=== PATIENT | male | born 1985 | race Caucasian/White ===

== ENCOUNTER 2018-03-18 21:03 | Emergency (ER) | END 2018-03-19 01:15 | disposition home or self-care (01) ==

== ENCOUNTER 2019-04-05 19:36 | Observation (INO) | payer BC, MEDICAID ==
[~2019-04-05] VITALS: Ht 180.3 cm; Wt 116.8 kg
[~2019-04-05 19:36] MED LIST: IBUP800T48 PO
[2019-04-06] MEDS ORDERED: ACETAMINOPHEN 325 MG TAB PO PRN ×2 (01:00→02:00)
[2019-04-06] MEDS ORDERED: ONDANSETRON 4 MG INJ IV PRN ×2 (01:00→02:00)
--- NOTE | 2019-04-06 01:41 | HP ---
Date/Time of Note Date/Time of Note DATE: 04/06/19 TIME: 01:35 Assessment/Plan VTE Prophylaxis SCD applied (from Ns): Yes Pharmacological prophylaxis: NA/contraindicated Pharm contraindication: low risk/ambulating Assessment/Plan Hospital Course This is a 33-year-old male being admitted to the telemetry floor for observation for: #1 chest pain: Rule out ACS versus GI etiology: We will trend cardiac enzymes x3, the first that was negative. Will check an echocardiogram. PRN morphine/nitro for pain. Will check hemoglobin A1c, lipid panel, TSH. Does have a strong family hx of heart disease and was a smoker, consider cardio eval in am. #2 GERD: Patient does have a history of reflux. He states though that his pain at the current times does not feel like reflux. Nonetheless we will check H. pylori stool antigen. We will put patient on PRN Mylanta. On discharge we can likely start him on a PPI. I have discussed diet changes in regards to GERD. #3 obesity: We will check hemoglobin A 1C, lipid panel, TSH encourage diet lifestyle modification #4 DVT GI prophylaxis: SCDs, no GI prophylaxis at this time Further treatment strategy will be implemented as per the clinical course. Result Diagram: 04/05/19 2218 04/05/19 2218 Results 24hrs Laboratory Tests Test 04/05/19 22:18 White Blood Count 8.4 Red Blood Count 5.75 Hemoglobin 13.3 L Hematocrit 42.4 Mean Corpuscular Volume 73.7 L Mean Corpuscular Hemoglobin 23.1 L Mean Corpuscular Hemoglobin Concent 31.4 L Red Cell Distribution Width 14.9 H Platelet Count 216 Mean Platelet Volume 10.0 Immature Granulocytes % 0.100 Neutrophils % 64.7 Lymphocytes % 27.5 Monocytes % 5.4 Eosinophils % 1.8 Basophils % 0.5 Nucleated Red Blood Cells % 0.0 Immature Granulocytes # 0.010 Neutrophils # 5.4 Lymphocytes # 2.3 Monocytes # 0.5 Eosinophils # 0.2 Basophils # 0.0 Nucleated Red Blood Cells # 0.0 Urine Color YELLOW Urine Clarity CLEAR Urine pH 6.0 Urine Specific [place] 1.023 Urine Ketones NEGATIVE Urine Nitrite NEGATIVE Urine Bilirubin NEGATIVE Urine Urobilinogen NEGATIVE Urine Leukocyte Esterase NEGATIVE Urine Hemoglobin NEGATIVE Urine Glucose NEGATIVE Urine Total Protein NEGATIVE Sodium Level 144 Potassium Level 4.0 Chloride Level 102 Carbon Dioxide Level 31 Anion Gap 11 Blood Urea Nitrogen 14 Creatinine 1.05 Est Glomerular Filtrat Rate mL/min > 60 Glucose Level 106 Calcium Level 9.4 Total Bilirubin 0.3 Direct Bilirubin 0.00 Indirect Bilirubin 0.3 Aspartate Amino Transf (AST/SGOT) 23 Alanine Aminotransferase (ALT/SGPT) 30 Alkaline Phosphatase 73 Troponin I < 0.012 Total Protein 8.6 H Albumin 4.3 Globulin 4.30 H Albumin/Globulin Ratio 1.00 Lipase 145 HPI/ROS Admit Date/Time Admit Date/Time Hx of Present Illness Chief complaint: Chest pain This is a 33-year-old male with no significant past medical history who presented to the emergency department with complaints of substernal chest pain x1 day. Patient reports that he started experiencing chest pain yesterday. He reports that it was substernal. He also felt some dizziness and he had some numbness of his left arm. He denies any nausea vomiting or diarrhea. He does report that he has a history of heartburn however he states that this felt different than his normal heartburn. He does have a family history of heart disease. Denies any shortness of breath. Allergies: Hazelnuts Medication: None ROS Const: As per HPI Eyes : No pain discharge or redness or change in visual acuity ENT: No pain, sore throat, congestion, congestion, dysphagia or discharge Respiratory: No shortness of breath, cough, sputum, wheezing, or pleuritic pain Cardiovascular: As per HPI GI : no change in appetite, abdominal pain, nausea, vomiting, diarrhea, constipation, or change in the color his stool Genitourinary: No dysuria, hematuria, flank pain , discharge or CVA tenderness Musculoskeletal: No joint pain, back pain, neck pain, restricted range of motion in neck or joints Skin: No rash, bruising or hives Neuro: No headache, dizziness, syncope, seizure, focal weakness Endocrine: No polyuria, polydipsia, temperature intolerance Psych: No hallucination, depression, anxiety or suicidal ideation PMH/Family/Social Past Medical History GERD Medications Current Medications Ondansetron HCl (Zofran Inj) 4 mg ER BRIDGE PRN IV NAUSEA/VOMITING; Start 04/06/19 at 01:00; Stop 04/07/19 at 00:59 Acetaminophen (Tylenol Tab) 650 mg ER BRIDGE PRN PO .MILD PAIN 1-3 OR TEMP; Start 04/06/19 at 01:00; Stop 04/07/19 at 00:59 Al Hydrox/Mg Hydrox/Simethicone (Mag-Al Plus) 30 ml Q4H PRN PO GASTROINTESTINAL UPSET; Start 04/06/19 at 02:00; Status UNV Coded Allergies: hazelnut (Verified Allergy, Unknown, 03/18/18) Past Surgical History Appendectomy Family History Significant Family History: heart disease (father) Social History He does vape Smoking Status: Former smoker Drug Use: none Exam/Review of Systems Vital Signs Vitals Vital Signs Date Temp Pulse Resp B/P (MAP) Pulse Ox O2 O2 Flow FiO2 Time Delivery Rate 04/06/19 70 21 119/65 96 Room Air 01:19 (83) 04/05/19 98.1 21:50 Exam Exam General: Patient is a pleasant male currently lying in bed in no acute distress HEENT: Atraumatic, normocephalic. The pupils are equal, round and reactive. Extraocular motor are intact Neck: Supple with full range of motion. No rigidity or meningismus Chest: Nontender to palpation Lungs: Clear to auscultation bilaterally no crackles rales or wheezing Heart: Normal S1-S2, Regular rhythm and rate. No murmur, S3, or S4 Abdomen: Obese, soft , nontender, nondistended , bowel sounds are present. No guarding no rebound tenderness , No masses or organomegaly. No costovertebral temporal angle mass Extremities: Normal to inspection, no edema no cyanosis Neurologic: Normal mental status, speech normal, cranial nerves II through XII are intact, motor and sensory are intact, no focal weakness Additional Comments EKG: Normal sinus rhythm at approximately 80 bpm, no ST or T wave abnormalities concerning for acute ischemia PROCEDURE: Chest. CLINICAL INDICATION: Chest pain. TECHNIQUE: Single frontal view of the chest was obtained. COMPARISON: 03/18/2018. FINDINGS: The cardiac silhouette is within normal limits. The aortic arch is unremar kable. There is no focal consolidation, vascular congestion or pleural effusion. There is no pneumothorax. IMPRESSION: No evidence for active cardiopulmonary disease. .Ulysses Ryan MD, Date Time Electronically viewed and signed by .Ulysses Ryan MD, MD on 04/05/2019 23:44 .T/ CC: MARTY SANDERS [phone] FELIX GOFF Apr 06, 2019 01:41
[2019-04-06] MEDS ORDERED: morphine 2 MG INJ IV PRN (02:00)
[2019-04-06] MEDS ORDERED: NITROGLYCERIN (SL) 0.4 MG TAB SL PRN (02:00)
[2019-04-06] MEDS ORDERED: DOCUSATE SODIUM 100 MG CAP PO PRN (02:00)
[2019-04-06] MEDS ORDERED: NACL 0.9% 3 ML SYG IV SCH (02:00)
[2019-04-06] MEDS ORDERED: BISACODYL (EC) 5 MG TAB PO PRN (02:00)
[2019-04-06] MEDS ORDERED: AL HYDROX/MG HYDROX/SIMETH 30 ML CUP PO PRN (02:00)
--- NOTE | 2019-04-06 02:19 | ERD ---
ER Documentation Chief Complaint Chief Complaint epigastric,L leg,L neck muscle pull pain x 2 days HPI This is a very pleasant 33-year-old male chest pain is radiating to his left arm with numbness. Pain is mild to moderate intensity no exacerbating relieving factors. Denies fevers or chills. Denies any other current complaints. ROS All systems reviewed and are negative except as per history of present illness. Medications Home Meds Discontinued Scripts Ibuprofen* (Motrin*) 800 Mg Tab, 800 MG PO Q6, #30 TAB Prov:MALINDA NELSON PA-C 03/19/18 Allergies Allergies: Coded Allergies: hazelnut (Verified Allergy, Unknown, 03/18/18) PMhx/Soc Medical and Surgical Hx: pt denies Medical Hx History of Surgery: Yes (APPENDECTOMY) Anesthesia Reaction: No Hx Neurological Disorder: No Hx Respiratory Disorders: No Hx Cardiac Disorders: No Hx Psychiatric Problems: No Hx Miscellaneous Medical Probl: No Hx Alcohol Use: Yes (OCASSIONALLY) Hx Substance Use: No Hx Tobacco Use: Yes (QUIT 12/2018) Smoking Status: Former smoker Physical Exam Vitals Vital Signs Date Temp Pulse Resp B/P (MAP) Pulse Ox O2 O2 Flow FiO2 Time Delivery Rate 04/06/19 70 21 119/65 96 Room Air 01:19 (83) 04/05/19 63 20 154/89 96 Room Air 23:50 (110) 04/05/19 98.1 82 23 136/73 96 Room Air 21:50 (94) 04/05/19 99.5 88 18 153/74 96 19:46 (100) Physical Exam Const: No acute distress Head: Atraumatic Eyes: Normal Conjunctiva ENT: Normal External Ears, Nose and Mouth. Neck: Full range of motion. No meningismus. Resp: Clear to auscultation bilaterally Cardio: Regular rate and rhythm, no murmurs Abd: Soft, non tender, non distended. Normal bowel sounds Skin: No petechiae or rashes Back: No midline or flank tenderness Ext: No cyanosis, or edema Neur: Awake and alert Psych: Normal Mood and Affect Result Diagram: 04/05/19221704/05/198 Results 24 hrs Laboratory Tests Test 04/05/19 22:18 White Blood Count 8.4 10^3/ul Red Blood Count 5.75 10^6/ul Hemoglobin 13.3 g/dl Hematocrit 42.4 % Mean Corpuscular Volume 73.7 fl Mean Corpuscular Hemoglobin 23.1 pg Mean Corpuscular Hemoglobin Concent 31.4 g/dl Red Cell Distribution Width 14.9 % Platelet Count 216 10^3/UL Mean Platelet Volume 10.0 fl Immature Granulocytes % 0.100 % Neutrophils % 64.7 % Lymphocytes % 27.5 % Monocytes % 5.4 % Eosinophils % 1.8 % Basophils % 0.5 % Nucleated Red Blood Cells % 0.0 /100WBC Immature Granulocytes # 0.010 10^3/ul Neutrophils # 5.4 10^3/ul Lymphocytes # 2.3 10^3/ul Monocytes # 0.5 10^3/ul Eosinophils # 0.2 10^3/ul Basophils # 0.0 10^3/ul Nucleated Red Blood Cells # 0.0 10^3/ul Urine Color YELLOW Urine Clarity CLEAR Urine pH 6.0 Urine Specific [place] 1.023 Urine Ketones NEGATIVE mg/dL Urine Nitrite NEGATIVE mg/dL Urine Bilirubin NEGATIVE mg/dL Urine Urobilinogen NEGATIVE mg/dL Urine Leukocyte Esterase NEGATIVE Jeanette/ul Urine Hemoglobin NEGATIVE mg/dL Urine Glucose NEGATIVE mg/dL Urine Total Protein NEGATIVE mg/dl Sodium Level 144 mmol/L Potassium Level 4.0 mmol/L Chloride Level 102 mmol/L Carbon Dioxide Level 31 mmol/L Anion Gap 11 Blood Urea Nitrogen 14 mg/dl Creatinine 1.05 mg/dl Est Glomerular Filtrat Rate mL/min > 60 mL/min Glucose Level 106 mg/dl Calcium Level 9.4 mg/dl Total Bilirubin 0.3 mg/dl Direct Bilirubin 0.00 mg/dl Indirect Bilirubin 0.3 mg/dl Aspartate Amino Transf (AST/SGOT) 23 IU/L Alanine Aminotransferase (ALT/SGPT) 30 IU/L Alkaline Phosphatase 73 IU/L Troponin I < 0.012 ng/ml Total Protein 8.6 g/dl Albumin 4.3 g/dl Globulin 4.30 g/dl Albumin/Globulin Ratio 1.00 Lipase 145 U/L Current Medications Medications Dose Sig/Celine Start Time Status Last (Trade) Ordered Route PRN Stop Time Admin Dose Reason Admin Ondansetron 4 mg ER BRIDGE 04/06/19 HCl (Zofran PRN IV 01:00 Inj) NAUSEA/VOMITI 04/07/19 00:59 NG 650 mg ER BRIDGE 04/06/19 Acetaminophen PRN PO 01:00 (Tylenol .MILD PAIN 04/07/19 00:59 Tab) 1-3 OR TEMP Al 30 ml Q4H PRN 04/06/19 Hydrox/Mg PO 02:00 Hydrox/Simeth GASTROINTESTI icone NAL UPSET (Mag-Al Plus) IV Flush 3 ml PER 04/06/19 (NS 3 ml) PROTOCOL IV 02:00 Ondansetron 4 mg Q6H PRN 04/06/19 HCl (Zofran IV 02:00 Inj) NAUSEA/VOMITI NG Aspirin 81 mg DAILY PO 04/06/19 (Aspirin) 09:00 1 tab Q5M PRN 04/06/19 Nitroglycerin SL .CHEST 02:00 PAIN (Nitroglyceri n (Sl Tab) 0.4 Mg) 650 mg Q6H PRN 04/06/19 Acetaminophen PO .PAIN 1-3 02:00 (Tylenol OR TEMP Tab) Morphine 2 mg Q4H PRN 04/06/19 Sulfate IV .PAIN 02:00 (morphine) 7-10 Docusate 100 mg Q12H PRN 04/06/19 Sodium PO 02:00 (Colace) .CONSTIPATION Bisacodyl 5 mg DAILY PRN 04/06/19 (Dulcolax) PO 02:00 .CONSTIPATION Procedures/MDM EKG: Rate/Rhythm: [Normal Sinus Rhythm] QRS, ST, T-waves: [No changes consistent w/ acute ischemia] Impression: [No evidence of ischemia or arrhythmia] Chest X-ray 1V Interpreted by me: Soft Tissue: No acute abnormalities Bones: No acute abnormalities Mediastinum/Cardiac Silhouette/Lungs: [No acute abnormalities] Patient's symptoms are concerning for cardiac cause will require inpatient workup and continuous monitoring. Further w/u for ischemia, arrhythmia, PE or dissection will be deferred to the inpatient team. Accepting Care Team: Current data and ongoing care discussed. Time: 12:30 AM Primary Provider: Dr. Leon Consulting: [[place]] Outstanding Data: none Departure Diagnosis: Primary Impression: Chest pain Chest pain type: unspecified Qualified Codes: R07.9 - Chest pain, unspecified Condition: Serious MARTY SANDERS Apr 06, 2019 02:19
[2019-04-06 03:29] VITALS: BP 103/58; PULSE 61; RESP 18
[2019-04-06 03:44] VITALS: Ht 180.3 cm; Wt 116.8 kg
[2019-04-06 07:40] VITALS: BP 116/66; PULSE 65; RESP 17
[2019-04-06] MEDS: ASPIRIN 81 MG TAB PO SCH (09:26)
[2019-04-06 11:32] VITALS: BP 112/62; PULSE 65; RESP 18
[2019-04-06] MEDS ORDERED: METOPROLOL 25 MG TAB PO STA (15:05)
--- NOTE | 2019-04-06 15:30 | CONS ---
Assessment/Plan Assessment/Plan Hospital Course (Demo Recall) Chest pain Family history premature coronary artery disease Obesity Patient presents with symptoms of chest discomfort which have been worse after eating over the past few days and possibly associated with activity Serial cardiac enzymes are negative, ECG with no significant ischemic abnormal ities On further questioning, patient with strong family history of premature coronary artery disease with father with PCI in his 30s. We will obtain echocardiogram Recommend inpatient ischemic work-up Consultation Date/Type/Reason Admit Date/Time Type of Consult Cardiology Reason for Consultation Chest pain Date/Time of Note DATE: 04/06/19 TIME: 15:27 Hx of Present Illness This is a 33-year-old male who presents with on and off chest discomfort the past couple days. Patient has a hard time describing the discomfort but it is in his mid chest. He also feels some headache and left arm discomfort. He is unsure if he is having any shortness of breath. He does feel intermittent palpitations at times. Symptoms are worse with eating and at times he thinks worse with strenuous activity. Denies any fevers or chills, denies any cough. 12 point review of systems was performed with all pertinent positives and negatives mentioned above and all else is negative Past Medical History Medical History: no pertinent history Home Meds Discontinued Scripts Ibuprofen* (Motrin*) 800 Mg Tab, 800 MG PO Q6, #30 TAB Prov:MALINDA NELSON PA-C 03/19/18 Medications Current Medications Ondansetron HCl (Zofran Inj) 4 mg ER BRIDGE PRN IV NAUSEA/VOMITING; Start 04/06/19 at 01:00; Stop 04/07/19 at 00:59 Acetaminophen (Tylenol Tab) 650 mg ER BRIDGE PRN PO .MILD PAIN 1-3 OR TEMP; Start 04/06/19 at 01:00; Stop 04/07/19 at 00:59 Al Hydrox/Mg Hydrox/Simethicone (Mag-Al Plus) 30 ml Q4H PRN PO GASTROINTESTINAL UPSET Last administered on 04/06/19at 09:26; Admin Dose 30 ML; Start 04/06/19 at 02:00 IV Flush (NS 3 ml) 3 ml PER PROTOCOL IV ; Start 04/06/19 at 02:00 Ondansetron HCl (Zofran Inj) 4 mg Q6H PRN IV NAUSEA/VOMITING; Start 04/06/19 at 02:00 Aspirin (Aspirin) 81 mg DAILY PO Last administered on 04/06/19at 09:26; Admin Dose 81 MG; Start 04/06/19 at 09:00 Nitroglycerin (Nitroglycerin (Sl Tab) 0.4 Mg) 1 tab Q5M PRN SL .CHEST PAIN; Start 04/06/19 at 02:00 Acetaminophen (Tylenol Tab) 650 mg Q6H PRN PO .PAIN 1-3 OR TEMP; Start 04/06/19 at 02:00 Morphine Sulfate (morphine) 2 mg Q4H PRN IV .PAIN 7-10; Start 04/06/19 at 02:00 Docusate Sodium (Colace) 100 mg Q12H PRN PO .CONSTIPATION Last administered on 04/06/19at 09:28; Admin Dose 100 MG; Start 04/06/19 at 02:00 Bisacodyl (Dulcolax) 5 mg DAILY PRN PO .CONSTIPATION; Start 04/06/19 at 02:00 Allergies: Coded Allergies: hazelnut (Verified Allergy, Unknown, 03/18/18) Family History Significant Family History: heart disease Social History Alcohol Use: occasionally Smoking Status: Former smoker Drug Use: none Exam/Review of Systems Vital Signs Vitals Vital Signs Date Temp Pulse Resp B/P (MAP) Pulse Ox O2 O2 Flow FiO2 Time Delivery Rate 04/06/19 97.9 65 18 112/62 92 11:32 (79) 04/06/19 Room Air 03:29 Intake and Output 04/05/19 04/05/19 04/06/19 1515:00 23:00 07:00 IntakeIntake Total 360 ml BalanceBalance 360 ml Exam Constitutional: alert, oriented, well developed (No apparent distress) Respiratory: clear to auscultation, normal air movement Cardiovascular: regular rate and rhythm (S1-S2 heard) Gastrointestinal: soft, non-tender, bowel sounds Extremities: other (No significant edema) Labs Result Diagram: 04/06/19 0433 04/06/19 0433 Results 24hrs Laboratory Tests Test 04/05/19 22:18 04/06/19 04:33 04/06/19 09:46 White Blood Count 8.4 7.6 Red Blood Count 5.75 5.60 Hemoglobin 13.3 L 12.7 L Hematocrit 42.4 41.7 L Mean Corpuscular Volume 73.7 L 74.5 L Mean Corpuscular Hemoglobin 23.1 L 22.7 L Mean Corpuscular Hemoglobin Concent 31.4 L 30.5 L Red Cell Distribution Width 14.9 H 15.2 H Platelet Count 216 201 Mean Platelet Volume 10.0 10.9 H Immature Granulocytes % 0.100 0.300 Neutrophils % 64.7 60.3 Lymphocytes % 27.5 30.2 Monocytes % 5.4 6.2 Eosinophils % 1.8 2.5 Basophils % 0.5 0.5 Nucleated Red Blood Cells % 0.0 0.0 Immature Granulocytes # 0.010 0.020 Neutrophils # 5.4 4.6 Lymphocytes # 2.3 2.3 Monocytes # 0.5 0.5 Eosinophils # 0.2 0.2 Basophils # 0.0 0.0 Nucleated Red Blood Cells # 0.0 0.0 Urine Color YELLOW Urine Clarity CLEAR Urine pH 6.0 Urine Specific [place] 1.023 Urine Ketones NEGATIVE Urine Nitrite NEGATIVE Urine Bilirubin NEGATIVE Urine Urobilinogen NEGATIVE Urine Leukocyte Esterase NEGATIVE Urine Hemoglobin NEGATIVE Urine Glucose NEGATIVE Urine Total Protein NEGATIVE Sodium Level 144 145 H Potassium Level 4.0 4.0 Chloride Level 102 105 Carbon Dioxide Level 31 28 Anion Gap 11 12 Blood Urea Nitrogen 14 15 Creatinine 1.05 0.83 Est Glomerular Filtrat Rate mL/min > 60 > 60 Glucose Level 106 108 Calcium Level 9.4 9.3 Total Bilirubin 0.3 0.3 Direct Bilirubin 0.00 0.00 Indirect Bilirubin 0.3 0.3 Aspartate Amino Transf (AST/SGOT) 23 24 Alanine Aminotransferase (ALT/SGPT) 30 31 Alkaline Phosphatase 73 73 Troponin I < 0.012 < 0.012 < 0.012 Total Protein 8.6 H 8.1 Albumin 4.3 4.1 Globulin 4.30 H 4.00 H Albumin/Globulin Ratio 1.00 1.02 Lipase 145 Magnesium Level 2.0 Creatine Kinase 59 46 Creatine Kinase Index 0.4 0.5 Creatinine Kinase MB (Mass) < 0.22 < 0.22 Triglycerides Level 147 Cholesterol Level 152 LDL Cholesterol, Calculated 99 HDL Cholesterol 24 L Cholesterol/HDL Ratio 6.3 Thyroid Stimulating Hormone (TSH) 2.190 Iron Level 52 Total Iron Binding Capacity 299 Percent Iron Saturation 17 L Ferritin 88.7 Imaging Imaging ECG demonstrates sinus rhythm at 80 bpm, incomplete right bundle branch block with QRS 102 ms, no significant ischemic ST abnormalities Medications Medications Current Medications Ondansetron HCl (Zofran Inj) 4 mg ER BRIDGE PRN IV NAUSEA/VOMITING; Start 04/06/19 at 01:00; Stop 04/07/19 at 00:59 Acetaminophen (Tylenol Tab) 650 mg ER BRIDGE PRN PO .MILD PAIN 1-3 OR TEMP; Start 04/06/19 at 01:00; Stop 04/07/19 at 00:59 Al Hydrox/Mg Hydrox/Simethicone (Mag-Al Plus) 30 ml Q4H PRN PO GASTROINTESTINAL UPSET Last administered on 04/06/19 09:26; Admin Dose 30 ML; Start 04/06/19 at 02:00 IV Flush (NS 3 ml) 3 ml PER PROTOCOL IV ; Start 04/06/19 at 02:00 Ondansetron HCl (Zofran Inj) 4 mg Q6H PRN IV NAUSEA/VOMITING; Start 04/06/19 at 02:00 Aspirin (Aspirin) 81 mg DAILY PO Last administered on 04/06/19at 09:26; Admin Dose 81 MG; Start 04/06/19 at 09:00 Nitroglycerin (Nitroglycerin (Sl Tab) 0.4 Mg) 1 tab Q5M PRN SL .CHEST PAIN; Start 04/06/19 at 02:00 Acetaminophen (Tylenol Tab) 650 mg Q6H PRN PO .PAIN 1-3 OR TEMP; Start 04/06/19 at 02:00 Morphine Sulfate (morphine) 2 mg Q4H PRN IV .PAIN 7-10; Start 04/06/19 at 02:00 Docusate Sodium (Colace) 100 mg Q12H PRN PO .CONSTIPATION Last administered on 04/06/19at 09:28; Admin Dose 100 MG; Start 04/06/19 at 02:00 Bisacodyl (Dulcolax) 5 mg DAILY PRN PO .CONSTIPATION; Start 04/06/19 at 02:00 Jamar Anne DO Apr 06, 2019 15:30
[2019-04-06 16:00] VITALS: BP 123/66; PULSE 70; RESP 19
--- NOTE | 2019-04-06 16:10 | PN ---
Date/Time of Note Date/Time of Note DATE: 04/06/19 TIME: 16:06 Assessment/Plan VTE Prophylaxis Risk score (from Nsg)>0 risk: 1 SCD applied (from Ns): No SCD contraindicated: low risk/ambulating Pharmacological prophylaxis: NA/contraindicated Pharm contraindication: low risk/ambulating Lines/Catheters IV C[facility] Type (from [facility] Saline Lock Urinary Cath still in place: No Assessment/Plan Assessment/Plan 33 yo Serbian man presents with chest pain. #chest pain: - Rule out ACS versus GI etiology - Troponin neg x3. - However he is a smoker, has very concerning family history. - RBBB on EKG also. - Dr. Anne following - Plan for CT coronary angio tonight. If positive may need transfer for cardiac cath. #GERD: - Pending H pylori stool Ag - GI cocktail. #obesity: We will check hemoglobin A 1C, lipid panel, TSH encourage diet lifestyle modification # DVT GI prophylaxis: SCDs, no GI prophylaxis at this time Result Diagram: 04/06/193 04/06/19432 Subjective 24 Hr Interval Summary Free Text/Dictation No acute overnight events. The patient continues to have intermittent mild episodes of epigastric/chest pressure. Most recently related to eating and was temporarily relieved by GI cocktail. Exam/Review of Systems Exam Vitals Vital Signs Date Temp Pulse Resp B/P (MAP) Pulse Ox O2 O2 Flow FiO2 Time Delivery Rate 04/06/19 97.9 65 18 112/62 92 11:32 (79) 04/06/19 Room Air 03:29 Intake and Output 04/05/19 04/05/19 04/06/19 1515:00 23:00 07:00 IntakeIntake Total 360 ml BalanceBalance 360 ml Exam General: Patient is a pleasant male currently lying in bed in no acute distress HEENT: Atraumatic, normocephalic. The pupils are equal, round and reactive. Extraocular motor are intact Neck: Supple with full range of motion. No rigidity or meningismus Chest: Nontender to palpation Lungs: Clear to auscultation bilaterally no crackles rales or wheezing Heart: Normal S1-S2, Regular rhythm and rate. No murmur, S3, or S4 Abdomen: Obese, soft , nontender, nondistended , bowel sounds are present. No guarding no rebound tenderness , No masses or organomegaly. No costovertebral temporal angle mass Extremities: Normal to inspection, no edema no cyanosis Results Results 24hrs Laboratory Tests Test 04/05/19 22:18 04/06/19 04:33 04/06/19 09:46 White Blood Count 8.4 7.6 Red Blood Count 5.75 5.60 Hemoglobin 13.3 L 12.7 L Hematocrit 42.4 41.7 L Mean Corpuscular Volume 73.7 L 74.5 L Mean Corpuscular Hemoglobin 23.1 L 22.7 L Mean Corpuscular Hemoglobin Concent 31.4 L 30.5 L Red Cell Distribution Width 14.9 H 15.2 H Platelet Count 216 201 Mean Platelet Volume 10.0 10.9 H Immature Granulocytes % 0.100 0.300 Neutrophils % 64.7 60.3 Lymphocytes % 27.5 30.2 Monocytes % 5.4 6.2 Eosinophils % 1.8 2.5 Basophils % 0.5 0.5 Nucleated Red Blood Cells % 0.0 0.0 Immature Granulocytes # 0.010 0.020 Neutrophils # 5.4 4.6 Lymphocytes # 2.3 2.3 Monocytes # 0.5 0.5 Eosinophils # 0.2 0.2 Basophils # 0.0 0.0 Nucleated Red Blood Cells # 0.0 0.0 Urine Color YELLOW Urine Clarity CLEAR Urine pH 6.0 Urine Specific [place] 1.023 Urine Ketones NEGATIVE Urine Nitrite NEGATIVE Urine Bilirubin NEGATIVE Urine Urobilinogen NEGATIVE Urine Leukocyte Esterase NEGATIVE Urine Hemoglobin NEGATIVE Urine Glucose NEGATIVE Urine Total Protein NEGATIVE Sodium Level 144 145 H Potassium Level 4.0 4.0 Chloride Level 102 105 Carbon Dioxide Level 31 28 Anion Gap 11 12 Blood Urea Nitrogen 14 15 Creatinine 1.05 0.83 Est Glomerular Filtrat Rate mL/min > 60 > 60 Glucose Level 106 108 Calcium Level 9.4 9.3 Total Bilirubin 0.3 0.3 Direct Bilirubin 0.00 0.00 Indirect Bilirubin 0.3 0.3 Aspartate Amino Transf (AST/SGOT) 23 24 Alanine Aminotransferase (ALT/SGPT) 30 31 Alkaline Phosphatase 73 73 Troponin I < 0.012 < 0.012 < 0.012 Total Protein 8.6 H 8.1 Albumin 4.3 4.1 Globulin 4.30 H 4.00 H Albumin/Globulin Ratio 1.00 1.02 Lipase 145 Magnesium Level 2.0 Creatine Kinase 59 46 Creatine Kinase Index 0.4 0.5 Creatinine Kinase MB (Mass) < 0.22 < 0.22 Triglycerides Level 147 Cholesterol Level 152 LDL Cholesterol, Calculated 99 HDL Cholesterol 24 L Cholesterol/HDL Ratio 6.3 Thyroid Stimulating Hormone (TSH) 2.190 Iron Level 52 Total Iron Binding Capacity 299 Percent Iron Saturation 17 L Ferritin 88.7 Medications Medication Current Medications Ondansetron HCl (Zofran Inj) 4 mg ER BRIDGE PRN IV NAUSEA/VOMITING; Start 04/06/19 at 01:00; Stop 04/07/19 at 00:59 Acetaminophen (Tylenol Tab) 650 mg ER BRIDGE PRN PO .MILD PAIN 1-3 OR TEMP; Start 04/06/19 at 01:00; Stop 04/07/19 at 00:59 Al Hydrox/Mg Hydrox/Simethicone (Mag-Al Plus) 30 ml Q4H PRN PO GASTROINTESTINAL UPSET Last administered on 04/06/19 09:26; Admin Dose 30 ML; Start 04/06/19 at 02:00 IV Flush (NS 3 ml) 3 ml PER PROTOCOL IV ; Start 04/06/19 at 02:00 Ondansetron HCl (Zofran Inj) 4 mg Q6H PRN IV NAUSEA/VOMITING; Start 04/06/19 at 02:00 Aspirin (Aspirin) 81 mg DAILY PO Last administered on 04/06/19at 09:26; Admin Dose 81 MG; Start 04/06/19 at 09:00 Nitroglycerin (Nitroglycerin (Sl Tab) 0.4 Mg) 1 tab Q5M PRN SL .CHEST PAIN; Start 04/06/19 at 02:00 Acetaminophen (Tylenol Tab) 650 mg Q6H PRN PO .PAIN 1-3 OR TEMP; Start 04/06/19 at 02:00 Morphine Sulfate (morphine) 2 mg Q4H PRN IV .PAIN 7-10; Start 04/06/19 at 02:00 Docusate Sodium (Colace) 100 mg Q12H PRN PO .CONSTIPATION Last administered on 04/06/19at 09:28; Admin Dose 100 MG; Start 04/06/19 at 02:00 Bisacodyl (Dulcolax) 5 mg DAILY PRN PO .CONSTIPATION; Start 04/06/19 at 02:00 NABEEL AUGUSTIN MD Apr 06, 2019 16:10
[2019-04-06] MEDS ORDERED: SOD CHLORIDE 0.9% 100 ML ONE (17:02)
[2019-04-06] MEDS ORDERED: IOHEXOL 100 ML ONE (17:02)
[2019-04-06] MEDS ORDERED: NITROGLYCERIN AEROSOL (4.9 GM) ONE (17:28)
--- NOTE | 2019-04-06 18:54 | RADRPT ---
Echocardiogram Report Patient Name: Marianela NXI ID: [id number] : 1985 (33y 8m)Study Date: 04/06/2019 9:38:04 AM Gender: [place] #: [id number] Tech: Alvaro Ac [facility] Location: [address] Ref.Physician: FELIX GOFF Height(Cm): BSA: Weight(Kg): Quality: AdequateOrder Physician: FELIX GOFF Account #: Procedures: Echocardiographic Report: Transthoracic echocardiogram with complete 2D, M-Mode, and doppler examination. Indications: Chest Pain. Measurements: 2D/M Mode Doppler Measurement Value Normal Range Measurement Value Normal Range LVIDd 2D 5.2 [ 4.2 - 5.8 ] cm AV Peak Mathieu 1.4 [ 100.0 - 170.0 ] cm/sec LVIDs 2D 3.3 [ 2.5 - 4.0 ] cm AV Peak PG 8.0 [ 2.0 - 9.0 ] mmHg LVPWd 2D 1.0 [ 0.6 - 1.0 ] cm LVOT Peak Mathieu 1.1 [ 70.0 - 110.0 ] cm/sec IVSd 2D 1.1 [ 0.6 - 1.0 ] cm LVOT Peak PG 5.0 [ 2.0 - 6.0 ] mmHg AoR Diam 2D 2.6 [ 2.6 - 3.4 ] cm MV E Peak Mathieu 1.0 [ 60.0 - 130.0 ] cm/sec EDV 2D 131.0 [ 62.0 - 150.0 ] ml MV A Peak Mathieu 0.5 [ 100.0 - 120.0 ] cm/sec ESV 2D 42.5 [ 21.0 - 61.0 ] ml MV E/A 1.9 [ 0.8 - 1.5 ] ratio EF 2D 67.6 [ 52.0 - 72.0 ] percent MV Decel Time 176 [ 104 - 258 ] msec LA Dimen 2D 3.6 [ 3.0 - 4.0 ] cm Lat E` Mathieu 0.1 [ 10.0 - 15.0 ] cm/sec Lateral E/E` 7.7 [ 1.0 - 2.0 ] ratio Med E` Mathieu 0.1 cm/sec MV E/A 1.9 [ 0.8 - 1.5 ] ratio TR Peak Mathieu 2.3 [ 100.0 - 280.0 ] cm/sec TR Peak PG 21.0 mmHg RVSP 24.0 [ 10.0 - 36.0 ] mmHg Findings: Left Ventricle: Normal left ventricular systolic function. Normal left ventricular cavity size. Left ventricular wall thickness upper limits of normal. Ejection fraction is visually estimated at 65 %. Tissue Doppler/Mitral Doppler indices are within normal limits. Right Ventricle: Normal right ventricular size. Normal right ventricular systolic function. Left Atrium: The left atrium is normal in size. Right Atrium: The right atrium is normal in size. Mitral Valve: Mild mitral leaflet calcification. Mild mitral annular calcification. Trace mitral regurgitation. Aortic Valve: No significant aortic stenosis or insufficiency. Aortic cusps appear mildly calcified. Tricuspid Valve: Normal appearance of the tricuspid valve. The estimated Peak RVSP is 24 mmHg. There is trace tricuspid regurgitation. Pericardium: Normal pericardium with no significant pericardial effusion. Aorta: Normal aortic root. IVC: Normal size and normal respiratory collapse consistent with normal right atrial pressure. Conclusions: Normal left ventricular systolic function. Normal left ventricular cavity size. Left ventricular wall thickness upper limits of normal. Ejection fraction is visually estimated at 65 %. Tissue Doppler/Mitral Doppler indices are within normal limits. Normal right ventricular size. Normal right ventricular systolic function. No significant valvular stenosis or regurgitation seen. Normal pericardium with no significant pericardial effusion. Electronically Signed By: Jamar Anne 2019-04-06 18:53:46 PDT
[2019-04-06 19:27] VITALS: BP 92/50; PULSE 65; RESP 18
[2019-04-06 23:29] VITALS: BP 103/61; PULSE 67; RESP 20
[2019-04-07 03:41] VITALS: BP 97/69; PULSE 64; RESP 19
[2019-04-07 07:29] VITALS: BP 93/54; PULSE 54; RESP 18
[2019-04-07] MEDS: ASPIRIN 81 MG TAB PO SCH (08:52)
[2019-04-07 11:16] VITALS: BP 105/51; PULSE 64; RESP 19
--- NOTE | 2019-04-07 12:24 | PDOCDIS ---
Discharge Instructions DIAGNOSIS Discharge Diagnosis Dyspepsia CONDITION [id number] Patient Condition: Eyoiv7s Good HOME CARE INSTRUCTIONS: [id number] Diet Instructions: [id number] Low Fat /Cholesterol ACTIVITY: [id number] Activity Restrictions: Frudw6h No Restrictions FOLLOW UP/APPOINTMENTS Follow-up Plan 1. Get aerobic exercise for at least 30 minutes per day at least 3 days a week. You should exercise briskly enough so that you're too short of breath to have a conversation. 2. Your weight puts you in the obese category. Obesity increases your risk of heart disease, diabetes mellitus, high blood pressure, knee and hip arthritis. Below 200 lbs you will no longer be obese. Below 170 lbs you will be at a healthy weight. 3. If you develop pressure-like chest discomfort with exercise that does not improve with rest, return to the emergency room immediately. NABEEL AUGUSTIN MD Apr 07, 2019 12:24
--- NOTE | 2019-04-07 12:25 | CONS ---
Assessment/Plan Assessment/Plan Hospital Course (Demo Recall) Chest pain Minimal nonobstructive coronary artery disease CT coronary angiogram 04/06/2019 Preserved left ventricular ejection fraction Family history premature coronary artery disease Obesity CT coronary angiogram with minimal nonobstructive disease in the RCA. Preserved left ventricular ejection fraction No further symptoms of chest pain Aggressive risk factor management DC planning Consultation Date/Type/Reason Admit Date/Time Apr 06, 2019 at 00:34 Initial Consult Date Type of Consult Cardiology Date/Time of Note DATE: 04/07/19 TIME: 12:23 24 HR Interval Summary Free Text/Dictation No chest pain, shortness of breath or palpitations Exam/Review of Systems Vital Signs Vitals Vital Signs Date Temp Pulse Resp B/P (MAP) Pulse Ox O2 O2 Flow FiO2 Time Delivery Rate 04/07/19 98.9 64 19 105/51 96 11:16 (69) 04/06/19 Room Air 03:29 Intake and Output 04/06/19 04/06/19 04/07/19 1515:00 23:00 07:00 IntakeIntake Total 600 ml 240 ml 250 ml BalanceBalance 600 ml 240 ml 250 ml Exam Constitutional: alert, oriented (No apparent distress) Head: normocephalic Respiratory: other (Coarse breath sounds bilaterally, no wheezing) Cardiovascular: regular rate and rhythm (S1-S2 heard) Gastrointestinal: soft, non-tender, bowel sounds Extremities: other (No significant edema) Labs Result Diagram: 04/07/19 0525 04/07/19 0525 Results 24hrs Laboratory Tests Test 04/07/19 05:25 White Blood Count 9.4 # Red Blood Count 5.45 Hemoglobin 12.6 L Hematocrit 40.5 L Mean Corpuscular Volume 74.3 L Mean Corpuscular Hemoglobin 23.1 L Mean Corpuscular Hemoglobin Concent 31.1 L Red Cell Distribution Width 15.0 H Platelet Count 215 Mean Platelet Volume 10.6 H Immature Granulocytes % 0.300 Neutrophils % 65.6 Lymphocytes % 26.1 Monocytes % 5.7 Eosinophils % 1.8 Basophils % 0.5 Nucleated Red Blood Cells % 0.0 Immature Granulocytes # 0.030 Neutrophils # 6.1 Lymphocytes # 2.4 Monocytes # 0.5 Eosinophils # 0.2 Basophils # 0.1 Nucleated Red Blood Cells # 0.0 Sodium Level 142 Potassium Level 4.5 Chloride Level 103 Carbon Dioxide Level 31 Anion Gap 8 Blood Urea Nitrogen 15 Creatinine 0.88 Est Glomerular Filtrat Rate mL/min > 60 Glucose Level 103 Calcium Level 9.4 Total Bilirubin 0.4 Direct Bilirubin 0.00 Indirect Bilirubin 0.4 Aspartate Amino Transf (AST/SGOT) 22 Alanine Aminotransferase (ALT/SGPT) 29 Alkaline Phosphatase 73 Total Protein 8.3 H Albumin 4.1 Globulin 4.20 H Albumin/Globulin Ratio 0.97 Medications Medications Current Medications Al Hydrox/Mg Hydrox/Simethicone (Mag-Al Plus) 30 ml Q4H PRN PO GASTROINTESTINAL UPSET Last administered on 04/06/19at 09:26; Admin Dose 30 ML; Start 04/06/19 at 02:00 IV Flush (NS 3 ml) 3 ml PER PROTOCOL IV ; Start 04/06/19 at 02:00 Ondansetron HCl (Zofran Inj) 4 mg Q6H PRN IV NAUSEA/VOMITING; Start 04/06/19 at 02:00 Aspirin (Aspirin) 81 mg DAILY PO Last administered on 04/07/19at 08:52; Admin Dose 81 MG; Start 04/06/19 at 09:00 Nitroglycerin (Nitroglycerin (Sl Tab) 0.4 Mg) 1 tab Q5M PRN SL .CHEST PAIN; Start 04/06/19 at 02:00 Acetaminophen (Tylenol Tab) 650 mg Q6H PRN PO .PAIN 1-3 OR TEMP; Start 04/06/19 at 02:00 Morphine Sulfate (morphine) 2 mg Q4H PRN IV .PAIN 7-10; Start 04/06/19 at 02:00 Docusate Sodium (Colace) 100 mg Q12H PRN PO .CONSTIPATION Last administered on 04/06/19at 09:28; Admin Dose 100 MG; Start 04/06/19 at 02:00 Bisacodyl (Dulcolax) 5 mg DAILY PRN PO .CONSTIPATION; Start 04/06/19 at 02:00 Jamar Anne DO Apr 07, 2019 12:25
--- NOTE | 2019-04-07 15:26 | DS ---
Date/Time of Note Date/Time of Note DATE: 04/07/19 TIME: 15:22 Discharge Summary Admission/Discharge Info Admit Date/Time Apr 06, 2019 at 00:34 Discharge Date/Time Apr 07, 2019 at 13:36 Discharge Diagnosis Dyspepsia Patient Condition: Good Hx of Present Illness Chief complaint: Chest pain This is a 33-year-old Nepali man with no significant past medical history who presented to the emergency department with complaints of substernal chest pain x1 day. Patient reports that he started experiencing chest pain yesterday. He reports that it was substernal. He also felt some dizziness and he had some numbness of his left arm. He denies any nausea vomiting or diarrhea. He does report that he has a history of heartburn however he states that this felt different than his normal heartburn. He does have a family history of heart disease. Denies any shortness of breath. Allergies: Hazelnuts Medication: None Hospital Course EKG showed partial RBBB. Upon further evaluation, pain sounds to be more like dyspepsia. Resolved with GI cocktail. His father had a stent at age 37 and patient recently quit smoking so we considered him at high risk for CAD. A CT coronary angiogram was done showing calcium score 5 and very small plaque in the proximal right main. He was discharged with instructions to lose weight and exercise. Home Meds Discontinued Scripts Ibuprofen* (Motrin*) 800 Mg Tab, 800 MG PO Q6, #30 TAB Prov:MALINDA NELSON PA-C 03/19/18 Follow-up Plan 1. Get aerobic exercise for at least 30 minutes per day at least 3 days a week. You should exercise briskly enough so that you're too short of breath to have a conversation. 2. Your weight puts you in the obese category. Obesity increases your risk of heart disease, diabetes mellitus, high blood pressure, knee and hip arthritis. Below 200 lbs you will no longer be obese. Below 170 lbs you will be at a healthy weight. 3. If you develop pressure-like chest discomfort with exercise that does not improve with rest, return to the emergency room immediately. Primary Care Provider Care Physician No Primary Time spent on discharge: > 30 minutes Pending Labs Laboratory Tests Test 04/07/19 05:25 White Blood Count 9.4 10^3/ul (4.8-10.8) Red Blood Count 5.45 10^6/ul (4.70-6.10) Hemoglobin 12.6 g/dl (14.0-18.0) Hematocrit 40.5 % (42.0-52.0) Mean Corpuscular Volume 74.3 fl (82.0-101.0) Mean Corpuscular Hemoglobin 23.1 pg (29.0-33.0) Mean Corpuscular Hemoglobin Concent 31.1 g/dl (32.0-37.0) Red Cell Distribution Width 15.0 % (11.5-14.5) Platelet Count 215 10^3/UL (140-415) Mean Platelet Volume 10.6 fl (7.4-10.4) Immature Granulocytes % 0.300 % (0.001-0.429) Neutrophils % 65.6 % (39.0-77.0) Lymphocytes % 26.1 % (15.0-51.0) Monocytes % 5.7 % (0.0-11.0) Eosinophils % 1.8 % (0.0-7.0) Basophils % 0.5 % (0.0-2.0) Nucleated Red Blood Cells % 0.0 /100WBC (0.0-0.0) Immature Granulocytes # 0.030 10^3/ul (0.0-0.031) Neutrophils # 6.1 10^3/ul (1.6-7.5) Lymphocytes # 2.4 10^3/ul (0.8-2.9) Monocytes # 0.5 10^3/ul (0.3-0.9) Eosinophils # 0.2 10^3/ul (0.0-0.5) Basophils # 0.1 10^3/ul (0.0-0.1) Nucleated Red Blood Cells # 0.0 10^3/ul (0.0-0.0) Sodium Level 142 mmol/L (135-144) Potassium Level 4.5 mmol/L (3.5-5.1) Chloride Level 103 mmol/L (97-110) Carbon Dioxide Level 31 mmol/L (21-31) Anion Gap 8 (5-13) Blood Urea Nitrogen 15 mg/dl (7-20) Creatinine 0.88 mg/dl (0.61-1.24) Est Glomerular Filtrat Rate mL/min > 60 mL/min (>60) Glucose Level 103 mg/dl (70-220) Calcium Level 9.4 mg/dl (8.4-10.2) Total Bilirubin 0.4 mg/dl (0.2-1.3) Direct Bilirubin 0.00 mg/dl (0.00-0.20) Indirect Bilirubin 0.4 mg/dl (0-1.1) Aspartate Amino Transf (AST/SGOT) 22 IU/L (15-46) Alanine Aminotransferase (ALT/SGPT) 29 IU/L (13-69) Alkaline Phosphatase 73 IU/L (42-121) Total Protein 8.3 g/dl (6.1-8.1) Albumin 4.1 g/dl (3.3-4.9) Globulin 4.20 g/dl (1.3-3.2) Albumin/Globulin Ratio 0.97 NABEEL AUGUSTIN MD Apr 07, 2019 15:26
== END 2019-04-07 13:36 | disposition home or self-care (01) ==
LOC: E/R 19:36 → 6WM 04-06 00:34
PROVIDERS: ADMIT Family Medicine; ATTEND Internal Medicine
DX: R07.9 Chest pain, unspecified (principal); R10.13 Epigastric pain; I25.10 Atherosclerotic heart disease of native coronary artery without angina pectoris; K21.9 Gastro-esophageal reflux disease without esophagitis; E66.9 Obesity, unspecified; Z68.35 Body mass index [BMI] 35.0-35.9, adult; Z87.891 Personal history of nicotine dependence; Z82.49 Family history of ischemic heart disease and other diseases of the circulatory system
CPT/HCPCS: 36415; 71045; 75571; 75574; 80053; 80061; 81003; 82306; 82550; 82553; 82728; 83540; 83690; 83735; 84443; 84484; 85025; 87338; 93005; 93306; Q9967; Z7500; Z7502; Z7610; 99217; G0378